=== PATIENT | female | born 1995 | race Caucasian/White ===

== ENCOUNTER → 2024-02-26 12:17 | Outpatient (CLI) | payer OTHER, MEDICAID, SELFPAY | PROVIDERS: Visit Provider Physician Assistant | DX: R35.0 Frequency of micturition (principal) | CPT/HCPCS: 81002; 87086 ==

== ENCOUNTER → 2024-03-17 09:36 | Outpatient (CLI) | payer OTHER, MEDICAID, SELFPAY ==
--- NOTE | 2024-03-17 09:37 | DI.US.S_ITS ---
PROCEDURE: US RENAL COMPLETE INDICATIONS: Asses for nephrolothiasis TECHNIQUE: Real-time scanning was performed of the kidneys and bladder, with image documentation. COMPARISON: None. FINDINGS: Kidneys: Kidneys are normal in size. Right kidney measures 10 cm long; left kidney measures 10.7 cm long. Right renal cortical thickness is 1.1 cm; left renal cortical thickness is 1.0 cm. Renal cortical echotexture is normal. No hydronephrosis or nephrolithiasis. No suspicious solid mass lesions. Bladder: Pre-void bladder volume is 145 mL. Post-void residual is to mL. Pre-void images demonstrate no intraluminal masses or stones. On pre-void images, neither ureteral jets are noted with color Doppler interrogation. (Of note, ureteral jets may not be detectable in up to 25% of cases due to insufficient differences in specific gravity between ureteral and bladder urine). Miscellaneous: No free pelvic fluid. IMPRESSION: No nephrolithiasis or hydronephrosis. Dictated by: Trevor Johnson M.D. on 03/17/2024 at 12:52 Approved by: Trevor Johnson M.D. on 03/17/2024 at 12:54
== END ==
PROVIDERS: PCP Family Medicine; Referring Provider Family Medicine; Visit Provider Family Medicine
DX: R31.9 Hematuria, unspecified (principal); R30.0 Dysuria
CPT/HCPCS: 76770

== ENCOUNTER 2024-09-09 12:09 | Emergency (ER) | payer OTHER, SELFPAY ==
[2024-09-09 12:38] VITALS: BP 125/75; PULSE 84; RESP 18; TEMP 36.5; O2SAT 99; BMI 27.4
--- NOTE | 2024-09-09 12:43 | DI.RAD.S_ITS ---
PROCEDURE: XR HAND RT MIN 3V INDICATIONS: injury. TECHNIQUE: 3 views of the hand(s) acquired. COMPARISON: None. FINDINGS: Bones: No fractures or dislocations. Carpal bones are normally aligned. No suspicious bony lesions. Apparent old healed 4th metacarpal diaphyseal fracture. Soft tissues: No suspicious soft tissue calcifications. IMPRESSION: No acute bony abnormality. Old healed fracture. Dictated by: Guillermo Delatorre M.D. on 09/09/2024 at 13:31 Approved by: Guillermo Delatorre M.D. on 09/09/2024 at 13:32
--- NOTE | 2024-09-09 12:44 | DI.RAD.S_ITS ---
PROCEDURE: XR WRIST RT MIN 3V INDICATIONS: injury TECHNIQUE: 4 views of the wrist were acquired. COMPARISON: None. FINDINGS: Bones: No fractures or dislocations. No suspicious bony lesions. Soft tissues: No suspicious soft tissue calcifications. IMPRESSION: No acute bony abnormality. Dictated by: Guillermo Delatorre M.D. on 09/09/2024 at 13:32 Approved by: Guillermo Delatorre M.D. on 09/09/2024 at 13:33
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
[2024-09-09 15:29] VITALS: BP 112/65; PULSE 77; RESP 18; TEMP 36.9; O2SAT 99
== END 2024-09-09 15:30 | disposition home or self-care (01) ==
PROVIDERS: Emergency Provider Physician Assistant; PCP Family Medicine
DX: S63.91XA Sprain of unspecified part of right wrist and hand, initial encounter (principal); S63.501A Unspecified sprain of right wrist, initial encounter; Y04.8XXA Assault by other bodily force, initial encounter; Y93.F9 Activity, other caregiving
CPT/HCPCS: 73110; 73130; 99282; 99283